=== PATIENT | male | born 1965 | race Caucasian/White ===

== ENCOUNTER 2022-08-25 06:37 | Outpatient (CLI) | payer OTHER, SELFPAY ==
--- NOTE | ~2022-08-25 | MR_ITS ---
MRI of the cervical spine Clinical History: Radiculopathy Technique: Axial T2-weighted and gradient images, and sagittal T1-weighted, T2-weighted, and STIR rosangela ges were acquired. Findings: There is straightening of the normal cervical lordosis. No fracture or subluxation. No susp icious bone marrow signal abnormality. At C2-C3, there is no disc bulge or herniation. There is no spinal canal stenosis, cord compression, or neural foraminal narrowing. At C3-C4, there is mild disc osteophyte complex. No spinal canal stenosis or cord compression. Possib le minimal left neural foraminal narrowing. Right neural foramen preserved. At C4-C5, there is minimal disc osteophyte complex. No spinal canal stenosis, cord compression, or ne ural foraminal narrowing. At C5-C6, there is moderate degenerative disc narrowing with disc osteophyte complex present. There i s mild flattening the ventral cord. There is mild right neural foraminal narrowing. Left neural negro en preserved. At C6-C7, there is moderate to advanced degenerative disc narrowing. Disc osteophyte complex is prese nt, with flattening of the ventral cord. Bilateral neural foramina are preserved. No abnormal signal seen in the spinal cord. No epidural mass or collection seen. Paravertebral soft t issues are unremarkable. Impression: Mild ventral cord flattening/compression at C5-C6 and C6-C7, related to disc osteophyte complexes. Additional minimal degenerative changes, as above. Reviewed, dictated and finalized at [facility]. Impression: Mild ventral cord flattening/compression at C5-C6 and C6-C7, related to disc os teophyte complexes. Additional minimal degenerative changes, as above.
== END 2022-08-25 06:38 | disposition home or self-care (01) ==
PROVIDERS: PCP Internal Medicine; Visit Provider Internal Medicine
DX: M54.12 Radiculopathy, cervical region (principal)
CPT/HCPCS: 72141

== ENCOUNTER 2023-01-07 12:58 | Emergency (ER) | payer OTHER, SELFPAY ==
[2023-01-07 13:01] VITALS: BP 145/86; PULSE 96; RESP 14; TEMP 36.6; O2SAT 100
--- NOTE | 2023-01-07 13:20 | ED.UPPEXIN ---
HPI - Extremity Injury (Upper) General Chief Complaint: Extremity Injury, Upper Stated Complaint: TORE ROTATOR CUFF Time Seen by Provider: 01/07/23 13:17 History of Present Illness HPI narrative: Patient is a 57-year-old male with history of prior gastric sleeve, hypertension here with right shoulder pain. Patient states that about 4 months ago he had an accident at work injuring his right shoulder. Approximately 2 weeks later he had an additional injury and has had some persistent pain since. He has followed up with his primary care doctor and they plan to refer him to an orthopedic surgeon for it he states the pain is in his anterior shoulder and radiates down his biceps and occasionally into his forearm. He states that the pain is worse with movement and lifting anything heavy. Today the pain became unbearable even with lifting of cup of coffee and came into the emergency department hopeful that he would get an MRI to evaluate his shoulder and get some answers . He has only been using THC at home for the pain. States he cannot use NSAIDs and refuses to use Tylenol. He denies any chest pain, shortness of breath, numbness and tingling in the arms or legs, any weakness in the arm itself. Related Data Home Medications Medication Instructions Recorded Confirmed Dilantin 02/10/19 Soma 02/10/19 alprazolam 2 mg tablet 2 mg DAILY 02/10/19 02/20/19 cyanocobalamin (vitamin B-12) 500 500 mcg DAILY 02/10/19 02/20/19 mcg tablet (Vitamin B-12) hydrocodone 10 mg-acetaminophen 1 tablet PRN PRN Pain 02/10/19 02/20/19 325 mg tablet lisinopril 20 mg tablet 20 mg DAILY 02/10/19 02/20/19 multivitamin (Daily-Danita tablet) 1 tablet DAILY 02/10/19 02/20/19 omeprazole 20 mg capsule,delayed 20 mg DAILY 02/10/19 02/20/19 release potassium chloride 20 mEq 20 meq PO DAILY 02/10/19 02/20/19 tablet,extended release(part/cryst) quetiapine 300 mg tablet (Seroquel) 300 mg PO HS 02/10/19 02/10/19 Allergies Allergy/AdvReac Type Severity Reaction Status Date / Time No Known Allergies Allergy Verified 04/12/21 15:35 [facility] Past Medical History Medical History (Updated 01/07/23 @ 13:32 by Haily Newman MD) GERD (gastroesophageal reflux disease) Hypertension Seizure Sleep apnea Surgical History Surgical History (System 04/12/21 @ 15:35 by Chilango Villa) History of sleeve gastrectomy Hx of cholecystectomy Hx of colonoscopy Family History Family History (System 04/12/21 @ 15:35 by Chilango Villa) Father Acute myocardial infarction Mother COPD (chronic obstructive pulmonary disease) Social History Social History (System 04/12/21 @ 15:35 by Chilango Villa) Smoking packs per day: 2 Smoking cigarettes per day: 40.0 Years smoked: 30 Smoking pack-years: 60.00 Smoking status: Current every day smoker Tobacco type: cigarettes Alcohol intake: former Substance use: never Living arrangements: with family Gender identity (if verbalized by the patient): Male Exam Narrative: GENERAL: Well-appearing, well-nourished, and in no acute distress. HEAD: Normocephalic, atraumatic. EYES: PERRLA and EOMI. ENT: Nares clear. Mucous membranes moist. NECK: Supple. CHEST: Clear to auscultation. No respiratory distress. HEART: Regular rate and rhythm. Normal peripheral pulses. ABDOMEN: Soft, nontender, nondistended. EXTREMITIES: Anterior right shoulder tenderness which is reproducible. Worse with flexion of the shoulder as well as eversion. No bony deformities are appreciated. He has normal sensation throughout the entire arm as well as normal sensation and strength in the arm and hand. Strong radial pulse with normal capillary refill. SKIN: Warm, dry, no rash. NEURO: No focal deficits. Alert and oriented x3. PSYCH: Normal mood and affect. Course Course Emergency Course: Chart review performed. Patient here with shoulder pain after an injury months ago. Triage vitals show mild HTN, otherwise normal.
== END 2023-01-07 13:49 | disposition home or self-care (01) ==
PROVIDERS: Emergency Provider Student in an Organized Health Care Education/Training Program; PCP Internal Medicine
DX: M25.511 Pain in right shoulder (principal); I10 Essential (primary) hypertension; G47.30 Sleep apnea, unspecified; K21.9 Gastro-esophageal reflux disease without esophagitis; Z98.84 Bariatric surgery status; Z90.49 Acquired absence of other specified parts of digestive tract; F17.210 Nicotine dependence, cigarettes, uncomplicated
CPT/HCPCS: 99282

== ENCOUNTER 2023-02-07 06:33 | Outpatient (CLI) | payer OTHER, SELFPAY ==
--- NOTE | ~2023-02-07 | MR_ITS ---
EXAMINATION: MR shoulder RT wo con DATE: 02/07/2023 07:25 INDICATION: PAIN OF RT SHOULDER JOINT . TECHNIQUE: Magnetic resonance imaging (MRI) of the right shoulder was performed without intravenous c ontrast. Sequences included axial PD-weighted FS FSE, coronal oblique PD-weighted FS FSE and T2-weigh dami FS FSE, and sagittal oblique T2-weighted FS FSE and T1-weighted FSE. COMPARISON: None. FINDINGS: Coracoacromial arch: Subacromial space measures 6 mm. Moderate lateral downsloping of the type I acromion. Minimal acromia l tip enthesopathy and undersurface remodeling. Rotator cuff: No focal cuff tear. Focal tendinopathy involving the distal fibers of the supraspinatus tendon in the critical zone. Biceps tendon and glenoid labrum: Mild longitudinal type tear in the long head of biceps tendon. Glenoid labral tear involving the supe rior posterior and superior anterior portions of the glenoid labrum. Fluid: Minimal subacromial subdeltoid fluid. Small volume glenohumeral joint fluid. Bones/cartilage: Moderate degenerative change at the AC joint and glenohumeral joint. IMPRESSION: 1. Superior glenoid labral tear. 2. Mild longitudinal type tear of the long head of biceps tendon. 3. Distal supraspinatus tendinopathy. 4. Osseous outlet compromise. 5. Polyarticular osteoarthritis. Reviewed, dictated and finalized at location K. R PRESS OPERATOR
== END 2023-02-07 06:34 | disposition home or self-care (01) ==
PROVIDERS: PCP Internal Medicine; Visit Provider Orthopaedic Surgery
DX: M19.011 Primary osteoarthritis, right shoulder (principal); S43.491A Other sprain of right shoulder joint, initial encounter; X58.XXXA Exposure to other specified factors, initial encounter
CPT/HCPCS: 73221

== ENCOUNTER 2025-01-30 00:03 | Day surgery (SDC) | payer OTHER, SELFPAY ==
[2025-01-19 12:36] VITALS: BMI 38.0
--- OUTSIDE RECORDS SUMMARY | 2025-01-30 00:07 | XMS_ITS | Clinical Summary ---
Author Organization [facility] Address [address] [place] [address] Care Team Providers Care Public Bath Attendant Name Role Phone Unavailable Primary Care Provider Unavailabl e Source Comments [facility],non-owned Affiliates and Associated Physician Practices is amultiple site organization consisting of ambulatory clinics and hospital sitesin [place], [place], [place] and [place]. This disclosure is being madepursuant to the Care Everywhere program and may not contain all information available regarding this patient. Last updated 17.[facility] Allergies Active Allergy Reactions Criticality Noted Date Comments Nsaids Nausea and/or Vomiting,GI Discomfort Medium 11/27/2019 Medications * Be aware that medications may not be up to date on this document. Alwaysverify current medications with the patient. phenytoin ER (DILANTIN) 100 MG capsule Take 3 capsules by mouth at bedtime 0 Active omeprazole (PRILOSEC) 20 MG capsule Take 20 mg by mouth daily before breakfast 0 Active Multiple Vitamin (DAILY-GONZALEZ) TABS Take 1 tablet by mouth once daily 0 Active lisinopril (PRINIVIL; ZESTRIL) 20 MG tablet Take 20 mg by mouth once daily 0 Active HYDROcodone-acetam inophen (NORCO) 7.5-325 MG tablet Take 1 tablet by mouth 4 times daily 0 Active STOOL SOFTENER 100 MG capsule Take 1 capsule by mouth once daily 0 Active cyanocobalamin (VITAMIN B-12) 500 MCG tablet Take 1 tablet by mouth once daily 9 Active atorvastatin (LIPITOR) 20 MG tablet Take 1 tablet by mouth once daily 0 Active VENTOLIN HFA 108 (90 Base) MCG/ACT inhaler Inhale 1 puff by mouth every 6 hours as needed 0 Active ALPRAZolam (XANAX) 2 MG tablet Take 1 tablet by mouth 3 times daily 9 Active traZODone (DESYREL) 150 MG tablet Take 150 mg by mouth at bedtime 0 Active meloxicam (MOBIC) 15 MG tabletIndications: Osteoarthritis of multiple joints, unspecified osteoarthritis type Take 1 tablet by mouth once daily 30 tablet 2 1 Active Family History Medical History Relation Name Comments COPD - Chronic Obstructive Pulmonary Disease Father Other - Cardiac Mother Drug Abuse Sister 1 Other - Neurologic Sister 2 Drug Abuse Son Relation Name Status Comments Father Mother Sister 1 Sister 2 Son Social History Tobacco Use Types Packs/Day Years Used Date Smoking Tobacco: Every Day Cigarettes Smokeless Tobacco: Never Comments:Was 3 pk/day Alcohol Use Standard Drinks/Week Comments Never 0 (1 standard drink = 0.6 oz pur e alcohol) AUDIT-C Answer Date Recorded Q1: How often do you have a drink containing alc ohol? 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 Gender Identity Not on file Sexual Orientation Not on file Last Filed Vital Signs Vital Sign Reading Time Taken Comments Blood Pressure 108/82 12/09/2019 2:31 PM CDT Pulse - - Temperature 36.6 C (97.8 F) 12/09/2019 2:31 PM CDT Respiratory Rate - - Oxygen Saturation - - Inhaled Oxygen Concentration - - Weight 160 kg (352 lb 12.8 oz) 12/09/2019 2:31 P M CDT Height 195.6 cm (6' 5) 12/09/2019 2:31 PM CDT Body Mass Index 41.84 12/09/2019 2:31 PM CDT Plan of Treatment Health Maintenance Due Date Last Done Comments COLOGUARD (AGES 45-75) - COLON CA SCREENING 1967 COLON MONITORING 1967 COLONOSCOPY - COLON CA SCREENING 1967 CT COLONOGRAPHY - COLON CA SCREENING 1967 Colorectal Cancer Screening 1967 FIT - COLON CA SCREENING 1967 FLEX SIG - COLON CA SCREENING 1967 HIV SCREENING 06/01/1982 HEPATITIS C SCREENING 05/28/1985 DTAP/TDAP/TD VACCINES (1 - Tdap) 06/01/1986 HEPATITIS B VACCINE (1 of 3 - 19+ 3-dose series) 06/01/1986 PNEUMOCOCCAL VACCINE 50+ (1 of 1 - PCV) 06/01/2017 ZOSTER VACCINE (1 of 2) 06/01/2017 SCREENING FOR DIABETES 11/26/2022 11/27/2019 DEPRESSION SCREENING 03/19/2024 COVID-19 VACCINE (1 - 2023- season) 2024 INFLUENZA VACCINE (#1) 2024 0, 12/25/2018, 01/21/2018, Additional history exists HIB VACCINE Aged Out No longer eligi ble based on patient's age to complete this topic HPV VACCINE Aged Out No longer eligi ble based on patient's age to complete this topic MENINGOCOCCAL (Group B) VACCINE SHARED DECISION-MAKING Aged Out No longer eligible based on patient's age to complete this topic MENINGOCOCCAL GROUPS A/C/Y/W VACCINE Aged Out No longer eligible based on patient's age to complete this topic Procedures Procedure Name Priority Date/Time Associated Diagnosis Comments COMPREHENSIVE METABOLIC PANEL Routine 11/27/2019 10:41 AM CDT Arthralgia, unspecified joint Rheumatoid factor positive with cyclic citrullinated peptide (CCP) antibody negative from Last 3 Months or Most Recently Relevant to Health Maintenance Results * COMPREHENSIVE METABOLIC PANEL (11/27/2019 10:41 AM CDT) BUN 14 7 - 26 mg/dL 11/27/2019 12:18 PM CDT [facility] Creatinine 0.9 0.6 - 1.2 mg/dL 11/27/2019 12:18 PM CDT [facility] Sodium 139 136 - 145 mmol/L 11/27/2019 12:18 PM CDT [facility] Potassium 3.5 3.5 - 4.5 mmol/L 11/27/2019 12:18 PM CDT [facility] Chloride 106 98 - 107 mmol/L 11/27/2019 12:18 PM [facility] CO2 26 22 - 29 mmol/L 11/27/2019 12:18 PM [facility] Glucose 94 70 - 115 mg/dL 11/27/2019 12:18 PM [facility] Calcium 9.0 8.4 - 10.2 mg/dL 11/27/2019 12:18 PM [facility] Protein Total 7.4 6.0 - 8.3 g/dL 11/27/2019 12:18 PM [facility] Albumin 3.9 3.4 - 5.0 g/dL 11/27/2019 12:18 PM [facility] Bilirubin Total 0.6 0.2 - 1.2 mg/dL 11/27/2019 12:18 PM [facility] Alkaline Phosphatase 92 40 - 150 Units/L 11/27/2019 12:18 PM [facility] ALT 28 0 - 55 Units/L 11/27/2019 12:18 PM [facility] AST 31 5 - 34 Units/L 11/27/2019 12:18 PM [facility] Anion Gap 11 8 - 18 11/27/2019 12:18 PM [facility] BUN/Creatinine Ratio 16 7 - 23 11/27/2019 12:18 PM [facility] Osmolality Calculated 288 270 - 300 mOsm/kg 11/27/2019 12:18 PM [facility] Albumin/Globulin Ratio 1.1 1.1 - 2.3 11/27/2019 12:18 PM [facility] eGFR >60 >60 mL/min/1.7 3 m2 11/27/2019 12:18 PM [facility] Blood BLOOD SPECIMEN / Unknown Lab Venipuncture / Unknown 11/27/2019 10:41 AM CDT 11/27/2019 11:38 AM [facility] tSarr Rapp MD LAB - CHEMISTRY ORDERABLES Fin al Result [facility] [address] [place] [address], [facility] [phone] from Last 3 Months or Most Recently Relevant to Health Maintenance Insurance [facility]
--- OUTSIDE RECORDS SUMMARY | 2025-01-30 00:07 | XMS_ITS | Encounter Summary ---
Author Organization [facility] Address [address] [place] [address] Care Team Providers Care Academic Support Coordinator Name Role Phone Unavailable Primary Care Provider Unavailabl e Reason for Visit * Reason Onset Date Comments MEDICATION REFILL 03/29/2020 Encounter Details Date Type Department Care Team (Late st Contact Info) Description 03/29/2020 Refill [facility] [address] [place] [address] Starr Rapp MD [address] [place] [address] MEDICATION REFILL Social History Tobacco Use Types Packs/Day Years [...] on file 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 Nsaids Nausea and/or Vomiting and GI Discomfort Pended Medication Order: Requested Prescriptions Pending Prescriptions Disp Refills ??? meloxicam (MOBIC) 15 MG tablet 30 tablet 2 Sig: Take 1 tablet by mouth once daily EDITOR documented in this encounter Plan of Treatment Not on file documented as of this encounter Visit Diagnoses Diagnosis Osteoarthritis of multiple joints, unspecified osteoarthritis type documented in this encounter
--- OUTSIDE RECORDS SUMMARY | 2025-01-30 00:07 | XMS_ITS | Clinical Summary ---
Author Organization [facility] Address [address], [address] [address] [place] [address] Phone Care Team Providers Care Tool And Gauge Inspector Name Role Phone Corwin Robb MD Primary Care Provider [phone] Social History Tobacco Use Types Packs/Day Years Used Date Smoking Tobacco: Never Assessed Sex and Gender Information Value Date Recorded Sex Assigned at Not on file Legal Sex Male 11:06 PM CDT Gender Identity Not on file Sexual Orientation Not on file Plan of Treatment Health Maintenance Due Date Last Done Comments Hepatitis C Virus (HCV) Screening 1965 TdaP Immunization 1965 Hepatitis B Immunization (1 of 3 - 19+ 3-dose series) 06/01/1986 Cologuard 06/01/2012 Immunochemical Fecal Occult Blood 06/01/2012 Pneumococcal Immunization (5 0+ years) (1 of 1 - PCV) 06/01/2017 Zoster Immunization (1 of 2) 06/01/2017 Colonoscopy 02/21/2020 02/20/2019 Colorectal Cancer Screening 02/21/2020 Influenza Immunization (#1) 2024 SARS-COV-2 Immunization ( season) 2024 Respiratory Syncytial Virus (RSV) Immunization (Adult) (1 - 1-dose 75+ series) 06/01/2042 Human Papillomavirus (HPV) Immunization Aged Out No longer eligible b ased on patient's age to complete this topic Meningococcal Immunization (ACWY) Aged Out No longer eligible based on patient's age to complete this topic Rotavirus Immunization Aged Out No lo nger eligible based on patient's age to complete this topic Procedures Procedure Name Priority Date/Time Associated Diagnosis Comments HM COLONOSCOPY Routine 02/20/2019 from Last 3 Months or Most Recently Relevant to Health Maintenance Results * COLONOSCOPY (02/20/2019) Jerry Adriana Mindy DO PROCEDURE/MINOR SURGICAL ORDERA BLES Final Result from Last 3 Months or Most Recently Relevant to Health Maintenance Insurance MEDICAID [place] Care Teams Tool And Gauge Inspector Relationship Specialty Start Date End Date Corwin Robb MD [address] [place] [address] [address] [place] [id number] PCP - General Internal Medicine 02/26/19
[2025-01-30 07:04] VITALS: BP 150/97; PULSE 60; RESP 18; TEMP 36.2; O2SAT 97
--- NOTE | 2025-01-30 07:13 | WPDANESEPPF ---
Anes - Initial Pre Proc Eval Procedure: Operation Date: 01/30/25 08:00 Proposed Procedures p Screening Colonoscopy - You Woods MD Date/Time: 01/30/25 07:13 Surgeon: You Woods MD Pre Op Diagnosis: Personal history of colon polyps, unspecified Patient Data Age: 59 Gender: M Height: 1.96 m Weight: 145.3 kg Last Vital Signs Temp 36.2 C L 01/30/25 07:04 Pulse 60 01/30/25 07:04 Resp 18 01/30/25 07:04 BP 150/97 H 01/30/25 07:04 Pulse Ox 97 01/30/25 07:04 O2 Del Method Room Air 01/30/25 07:04 Allergies Allergy/AdvReac Type Severity Reaction Status Date / Time No Known Allergies Allergy Verified 01/30/25 07:02 Home Medications ?Medication ?Instructions ?Recorded ?Confirmed ?Type Dilantin 300 mg PO DAILY 02/10/19 01/30/25 History alprazolam 2 mg tablet 2 mg PO DAILY PRN anxiety 02/10/19 01/30/25 History hydrocodone 10 mg-acetaminophen 1 tablet PO PRN PRN Pain 02/10/19 01/19/25 History 325 mg tablet lisinopril 20 mg tablet 20 mg PO DAILY 02/10/19 01/30/25 History multivitamin (Daily-Danita tablet) 1 tablet PO DAILY 02/10/19 01/30/25 History omeprazole 20 mg capsule,delayed 20 mg PO DAILY 02/10/19 01/30/25 History release atorvastatin 20 mg tablet 20 mg PO QPM 01/19/25 01/30/25 History tamsulosin 0.4 mg capsule 0.4 mg PO Q24H 01/19/25 01/30/25 History Patient hx anesthesia problems: none Family hx anesthesia problems: none Results Review: All pre-operative results and documents have been reviewed as part of the pre-operative evaluation. [facility] Past Medical History Medical History (Updated 01/30/25 @ 07:22 by Danielito Farmer DO) Hepatitis C carrier Sleep apnea GERD (gastroesophageal reflux disease) Seizure Hypertension Surgical History Surgical History (System 04/12/21 @ 15:35 by Chilango Villa) Hx of cholecystectomy Hx of colonoscopy History of sleeve gastrectomy Family History Family History (System 04/12/21 @ 15:35 by Chilango Villa) Father Acute myocardial infarction Mother COPD (chronic obstructive pulmonary disease) Social History Social History (System 04/12/21 @ 15:35 by Chilango Villa) Smoking packs per day: 2 Smoking cigarettes per day: 40.0 Years smoked: 30 Smoking pack-years: 60.00 Smoking status: Current every day smoker Tobacco type: cigarettes Alcohol intake: never Substance use: current Substance use type: marijuana Living arrangements: with family Gender identity (if verbalized by the patient): Male Spiritual care concerns: No Anes - Eval Final PreProcedure Day of Procedure 01/30/25 07:13 Patient weight: obese Heart: regular rate and rhythm Lungs: clear to auscultation Airway: Mallampati scale class II and special considerations poor dentition Neurological: alert and oriented Last oral intake: >/= 8 hours ASA classification: III Emergent: no Anesthetic plan: proceed Anesthesia type and monitoring: general GIVS and standard monitoring Results Review: All pre-operative results and documents have been reviewed as part of the pre-operative evaluation. Informed Consent: The patient's anesthetic plan and its attendant risks and benefits were discussed with the patient/family/POA. Questions were solicited and answers provided to the satisfaction of the patient/family/POA.
[2025-01-30] MEDS: LACTATED RINGERS 1,000 ML 150 ML IV CONT (07:15)
--- NOTE | 2025-01-30 07:20 | SUR.PREOP ---
DR SOUTH NOTIFIED OF PT'S BLOOD PRESSURE 150/97 IN LOWER LEFT ARM AND 162/103 IN LEFT UPPER ARM. NO NEW ORDERS. DOCTOR SEEING PT.
--- NOTE | 2025-01-30 08:00 | PM.IMHP ---
H&P: HPI History of Present Illness Date/Time: 01/30/25 08:00 Chief Complaint: History of colon polyps Narrative: The patient has a history of colonic polyps, the last colonoscopy was in 2019. Review of Systems Review of Systems: All systems reviewed & are unremarkable except as noted in HPI and below PMFSH Past Medical History Medical History (Updated 01/30/25 @ 07:22 by Danielito Farmer DO) Hepatitis C carrier Sleep apnea GERD (gastroesophageal reflux disease) Seizure Hypertension Surgical History Surgical History (System 04/12/21 @ 15:35 by Chilango Villa) Hx of cholecystectomy Hx of colonoscopy History of sleeve gastrectomy Family History Family History (System 04/12/21 @ 15:35 by Chilango Villa) Father Acute myocardial infarction Mother COPD (chronic obstructive pulmonary disease) Social History Social History (System 04/12/21 @ 15:35 by Chilango Villa) Smoking packs per day: 2 Smoking cigarettes per day: 40.0 Years smoked: 30 Smoking pack-years: 60.00 Smoking status: Current every day smoker Tobacco type: cigarettes Alcohol intake: never Substance use: current Substance use type: marijuana Living arrangements: with family Gender identity (if verbalized by the patient): Male Spiritual care concerns: No Meds Home Medications and Allergies Home Medications ?Medication ?Instructions ?Recorded ?Confirmed ?Type Dilantin 300 mg PO DAILY 02/10/19 01/30/25 History alprazolam 2 mg tablet 2 mg PO DAILY PRN anxiety 02/10/19 01/30/25 History hydrocodone 10 mg-acetaminophen 1 tablet PO PRN PRN Pain 02/10/19 01/19/25 History 325 mg tablet lisinopril 20 mg tablet 20 mg PO DAILY 02/10/19 01/30/25 History multivitamin (Daily-Danita tablet) 1 tablet PO DAILY 02/10/19 01/30/25 History omeprazole 20 mg capsule,delayed 20 mg PO DAILY 02/10/19 01/30/25 History release atorvastatin 20 mg tablet 20 mg PO QPM 01/19/25 01/30/25 History tamsulosin 0.4 mg capsule 0.4 mg PO Q24H 01/19/25 01/30/25 History Allergies Allergy/AdvReac Type Severity Reaction Status Date / Time No Known Allergies Allergy Verified 01/30/25 07:02 Vital Signs Vital Signs - 24 hr 01/30/25 07:04 Temperature 97.2 F L Pulse Rate 60 Respiratory Rate 18 Blood Pressure 150/97 H Pulse Oximetry 97 Oxygen Delivery Room Air Exam Const: General: cooperative and healthy appearing Resp: Effort & Inspection: normal respiratory effort and able to speak in complete sentences Auscultation: clear to auscultation bilaterally Cardio: Rate: regular rate Rhythm: regular rhythm GI: Inspection: normal to inspection GI Palp: No No hepatosplenomegaly present Auscultation: normal bowel sounds Rectal Exam: deferred Skin: General skin exam: normal color Psych: Appearance: grossly normal Mental Status: mental status grossly normal Assessment and Plan Assessment and plan (1) Positive colorectal cancer screening using Cologuard test: Code(s): R19.5 - Other fecal abnormalities Status: Acute Assessment and Plan: The patient is deemed a good candidate for the procedure. Consent signed. Will proceed.
[2025-01-30 08:27] VITALS: BP 137/87; PULSE 63; RESP 17; O2SAT 96
[2025-01-30 08:37] VITALS: BP 125/99; PULSE 61; RESP 12; O2SAT 97
[2025-01-30 08:47] VITALS: BP 147/85; PULSE 60; RESP 22; O2SAT 99
== END 2025-01-30 08:53 | disposition home or self-care (01) ==
PROVIDERS: PCP Internal Medicine; Referring Provider Internal Medicine; Visit Provider Internal Medicine Gastroenterology
PROC: 0DJD8ZZ Inspection of Lower Intestinal Tract, Via Natural or Artificial Opening Endoscopic (ICD-10-PCS; CPT 45378; principal; 2025-01-30 08:00)
DX: Z12.11 Encounter for screening for malignant neoplasm of colon (principal); R19.5 Other fecal abnormalities; K57.30 Diverticulosis of large intestine without perforation or abscess without bleeding; F17.210 Nicotine dependence, cigarettes, uncomplicated; F12.90 Cannabis use, unspecified, uncomplicated
CPT/HCPCS: 45378; J2704; J7120